=== PATIENT | male | born 1995 | race Two or more races ===

== ENCOUNTER 2019-10-21 16:44 | Emergency (ER) | payer OTHER ==
[~2019-10-21] VITALS: Ht 172.7 cm; Wt 79.4 kg
[2019-10-21 16:54] VITALS: BP 139/95
--- NOTE | 2019-10-21 17:04 | NUR ---
ED Nurse Note: PT WALKED IN DUE TO INTERMITTENT NUMBNESS ON HIS LEFT ARM AND FACE FOR THE LAST 2 DAYS. DENIES CP OR SOB. STATES SYMPTOMS STARTED AFTER SMOKING METH. AAO X4, AMBULATES WITH STEADY GAIT WITH NO RESPIRATORY DISTRESS.
--- NOTE | 2019-10-21 17:13 | NUR ---
ED Nurse Note: COLLECTED URINE THEN SENT.
[2019-10-21 17:26] LABS: APPEARANCE,URINE CLEAR; BILIRUBIN, URINE NEGATIVE (NEGATIVE); COLOR,URINE PALE YELLOW; GLUCOSE, URINE (UA) NEGATIVE (NEGATIVE); KETONES,URINE NEGATIVE (NEGATIVE); LEUKOCYTE ESTERASE ,URINE NEGATIVE (NEGATIVE); NITRITE,URINE NEGATIVE (NEGATIVE); PH,URINE 6 (4.5-8.0); PROTEIN,URINE NEGATIVE (NEGATIVE); UROBILINOGEN,URINE NORMAL MG/DL (0.0-1.0)
[2019-10-21 18:15] LABS: ANION GAP 11 mmol/L (5-15); BLOOD UREA NITROGEN 8 mg/dL (7-18); CALCIUM 9.3 MG/DL (8.5-10.1); CARBON DIOXIDE 28 MMOL/L (21-32); CHLORIDE 104 MMOL/L (98-107); CREATININE 0.8 MG/DL (0.55-1.30); POTASSIUM 4.1 MMOL/L (3.5-5.1); SODIUM 142 MMOL/L (136-145)
[2019-10-21 18:20] LABS: ALANINE AMINOTRANSFERASE 53 U/L (12-78); ALBUMIN 4.2 G/DL (3.4-5.0); ALBUMIN/GLOBULIN RATIO 1.2 (1.0-2.7); ALKALINE PHOSPHATASE 93 U/L (46-116); ASPARTATE AMINO TRANSFERASE 85 U/L (15-37); BILIRUBIN,TOTAL 0.4 MG/DL (0.2-1.0)
[2019-10-21 18:24] LABS: BASOPHILS % (AUTO) 1.2 % (0.0-2.0); EOSINOPHILS % (AUTO) 0.6 % (0.0-3.0); HEMATOCRIT 49.3 % (42.0-52.0); HEMOGLOBIN 15.9 G/DL (14.2-18.0); LYMPHOCYTES % (AUTO) 16.8 % (20.0-45.0); MEAN CORPUSCULAR VOLUME 94 FL (80-99); MONOCYTES % (AUTO) 7.1 % (1.0-10.0); NEUTROPHILS % (AUTO) 74.2 % (45.0-75.0); PLATELET COUNT 191 K/UL (150-450); RED BLOOD COUNT 5.24 M/UL (4.70-6.10); RED CELL DISTRIBUTION WIDTH 12.6 % (11.6-14.8); WHITE BLOOD COUNT 7.3 K/UL (4.8-10.8)
--- NOTE | 2019-10-21 18:50 | Emergency Room Report ---
History of Present Illness General Chief Complaint: General Complaint Source: Patient Present Illness HPI 24-year-old male with no seen was medical history here complaining of 2 days of left-sided facial numbness that is intermittent. Denies any fall or injury of the head he denies headache, blurry vision, nausea vomiting. Denies recent URI symptoms. No signs of facial palsy noted. Patient has full range of motion of the facial nerve. No motor or sensory deficits noted. Does not have any slurred speech. Reports that symptoms started the morning after he used methamphetamine also drank alcohol at the same time. Reports that he had not used methamphetamine in many years and last time that he used methamphetamine was few years ago and similar thing happened to him. Reports that he feels dehydrated as well. Denies chest pain, shortness of breath, palpitation, headache and dizziness at this time. Has not taken medication for symptom relief. Sitting comfortably with stable vital signs. Denies urinary symptoms. Denies tobacco smoking although drug use. Allergies: Coded Allergies: No Known Allergies (Unverified , 10/21/19) Patient History Past Medical History: see triage record Past Surgical History: none Pertinent Family History: none Social History: Reports: drug use - Methamphetamine Immunizations: UTD Reviewed Nursing Documentation: PMH: Agreed; PSxH: Agreed Nursing Documentation-PMH Past Medical History: No History, Except For Hx Asthma: Yes Review of Systems All Other Systems: negative except mentioned in HPI Physical Exam Vital Signs Date Time Temp Pulse Resp B/P (MAP) Pulse Ox O2 Delivery O2 Flow Rate FiO2 10/21/19 16:54 99.0 79 18 139/95 (110) 96 Room Air Sp02 EP Interpretation: reviewed, normal General Appearance: no apparent distress, alert, GCS 15, non-toxic Head: normocephalic, atraumatic Eyes: bilateral eye normal inspection, bilateral eye PERRL ENT: hearing grossly normal, normal pharynx, no angioedema, normal voice Neck: full range of motion, supple, thyroid normal, no meningismus, supple/symm /no masses Respiratory: chest non-tender, lungs clear, normal breath sounds, no rhonchi, no respiratory distress, no retraction, no wheezing, speaking full sentences Cardiovascular #1: regular rate, rhythm, no edema, no murmur, normal capillary refill Gastrointestinal: normal bowel sounds, non tender, soft, non-distended, no guarding, no rebound Genitourinary: no CVA tenderness Musculoskeletal: back normal Neurologic: alert, motor strength/tone normal, oriented x3, sensory intact, responsive, speech normal Psychiatric: normal inspection, judgement/insight normal Skin: no rash Lymphatic: no adenopathy Medical Decision Making PA Attestation All diagnoses and treatment plans were reviewed and discussed with my supervising physician Dr. Wallace Diagnostic Impression: Primary Impression: Methamphetamine use disorder, mild Additional Impression: Facial paresthesia ER Course 24-year-old male with no seen was medical history here complaining of 2 days of left-sided facial numbness that is intermittent. Denies any fall or injury of the head he denies headache, blurry vision, nausea vomiting. Denies recent URI symptoms. No signs of facial palsy noted. Patient has full range of motion of the facial nerve. No motor or sensory deficits noted. Does not have any slurred speech. Reports that symptoms started the morning after he used methamphetamine also drank alcohol at the same time. Reports that he had not used methamphetamine in many years and last time that he used methamphetamine was few years ago and similar thing happened to him. Reports that he feels dehydrated as well. Denies chest pain, shortness of breath, palpitation, headache and dizziness at this time. Has not taken medication for symptom relief. Sitting comfortably with stable vital signs. Denies urinary symptoms. Denies tobacco smoking although drug use. Ddx considered but are not limited to: generalized anxiety disorder, panic attack, depression with psychotic feature, bipolar disorder, drug overdose, Blanco 's palsy, CVA, TIA Vital signs: are WNL, pt. is afebrile H&PE are most consistent with: Paresthesia secondary to methamphetamine use ORDERS: CBC, CMP, UA, tox screen, ED INTERVENTIONS: NS bolus DISCHARGE: At this time pt. is stable for d/c to home. Will provide printed patient care instructions, and any necessary prescriptions. Care plan and follow up instructions have been discussed with the patient prior to discharge. Patient to follow-up primary care provider, take medication as directed, avoid using methamphetamine, avoid mixing vitamin and alcohol. If worsening symptoms return to emergency room. At this time no electrolyte abnormality noted. Last Vital Signs Date Time Temp Pulse Resp B/P (MAP) Pulse Ox O2 Delivery O2 Flow Rate FiO2 10/21/19 17:04 79 18 Room Air 10/21/19 16:54 99.0 139/95 96 Status: improved Disposition: HOME, SELF-CARE Condition: Stable Patient Instructions: Stimulant Use Disorder-Methamphetamines Additional Instructions: Increase oral hydration, drink electrolyte water, avoid using methamphetamine, avoid mixing alcohol and methamphetamine. If worsening symptoms return to the emergency room Masoud Yost Oct 21, 2019 18:50
--- NOTE | 2019-10-21 18:58 | NUR ---
ER DISCHARGE NOTE: Patient is cleared to be discharged per ERMD, pt is aox4, on room air, with stable vital signs. pt was given dc instructions, pt was able to verbalize understanding, pt id band and iv site removed without complications. pt is able to ambulate with steady gait. pt took all belongings.
== END 2019-10-21 18:58 | disposition home or self-care (01) ==
LOC: EMR 17:27
DX: F15.90 Other stimulant use, unspecified, uncomplicated (principal); R20.0 Anesthesia of skin
CPT/HCPCS: 36415; 80053; 80307; 81001; 85025; 96360; 99284